=== PATIENT | female | born 1990 | race Caucasian/White ===

== ENCOUNTER 2016-09-18 20:10 | Inpatient (IN) | payer MEDICAID, OTHER ==
[~2016-09-18] VITALS: Ht 170.2 cm; Wt 112.8 kg
[2016-09-18] MEDS: BETAMETHASONE 6 MG/ML, 5ML IM SCH (17:38)
[2016-09-18] MEDS ORDERED: MAGNESIUM SULF. PMX 20GM/500ML 500 ML IV ONE (22:01)
[2016-09-18] MEDS ORDERED: CALCIUM GLUCONATE 4.6 MEQ/10 ML IV PRN (22:30)
[2016-09-18] MEDS ORDERED: PLEASE ENTER ALLERGIES MC SCH ×2 (23:00)
[2016-09-18] MEDS: MAGNESIUM SULF. PMX 20GM/500ML 500 ML IV SCH (23:31)
[2016-09-18] MEDS ORDERED: ZOLPIDEM 5MG TABLET ONE (23:38)
[2016-09-18] MEDS: ZOLPIDEM 5MG TABLET PO PRN (23:42)
[2016-09-18] MEDS: AMPICILLIN 2 GM in SODIUM CHLORIDE 0.9% 100 ML IV SCH (23:52)
[2016-09-19 00:26] LABS: HEMOGLOBIN 12.1 g/dL (11.7-16.4)
[2016-09-19 00:37] LABS: ASPARTATE AMINO TRANSFERASE 16 U/L (15-37); BLOOD UREA NITROGEN 6 mg/dL (7-18)
[2016-09-19] MEDS: AMPICILLIN 2 GM in SODIUM CHLORIDE 0.9% 100 ML IV SCH ×3 (06:14→17:00)
[2016-09-19] MEDS ORDERED: MAGNESIUM SULF. PMX 20GM/500ML 500 ML IV ONE ×3 (08:35→22:34)
[2016-09-19] MEDS: MAGNESIUM SULF. PMX 20GM/500ML 500 ML IV SCH ×3 (08:39→23:11)
[2016-09-19] MEDS ORDERED: MAGNESIUM SULF. PMX 20GM/500ML 500 ML IV SCH (10:30)
[2016-09-19] MEDS ORDERED: PLEASE ENTER HEIGHT AND WEIGHT MC SCH (11:00)
[2016-09-19] MEDS: LACTATED RINGERS 1,000 ML IV PRN (11:07)
[2016-09-19 11:22] VITALS: BP 111/60
[2016-09-19] MEDS ORDERED: BETAMETHASONE 6 MG/ML, 5ML IM ONE (16:26)
[2016-09-19] MEDS: BETAMETHASONE 6 MG/ML, 5ML IM SCH (16:28)
[2016-09-19] MEDS ORDERED: CALCIUM CARBONATE 500 MG TAB.CHEW PO PRN (18:30)
[2016-09-19] MEDS ORDERED: ACETAMINOPHEN 325 MG TABLET ONE (20:41)
[2016-09-19] MEDS: ACETAMINOPHEN 325 MG TABLET PO PRN (20:44)
[2016-09-19] MEDS: DOCUSATE 100 MG CAPSULE PO SCH (21:00)
[2016-09-19] MEDS ORDERED: ZOLPIDEM 5MG TABLET ONE (21:41)
[2016-09-19] MEDS: ZOLPIDEM 5MG TABLET PO PRN (21:47)
[2016-09-20] MEDS: AMPICILLIN 2 GM in SODIUM CHLORIDE 0.9% 100 ML IV SCH ×4 (00:12→17:05)
[2016-09-20] MEDS ORDERED: MAGNESIUM SULF. PMX 20GM/500ML 500 ML IV ONE ×3 (06:00→19:58)
[2016-09-20] MEDS: MAGNESIUM SULF. PMX 20GM/500ML 500 ML IV SCH ×3 (06:06→20:01)
[2016-09-20] MEDS ORDERED: PRENATAL VIT/IRON/FA 1 EACH TABLET ONE (09:47)
[2016-09-20] MEDS ORDERED: DOCUSATE 100 MG CAPSULE ONE (09:47)
[2016-09-20] MEDS: DOCUSATE 100 MG CAPSULE PO SCH ×2 (09:52→21:00)
[2016-09-20] MEDS: PRENATAL VIT/IRON/FA 1 EACH TABLET PO SCH (09:52)
[2016-09-20 19:13] VITALS: BP 104/59
[2016-09-20] MEDS: LACTATED RINGERS 1,000 ML IV PRN (23:57)
[2016-09-21 03:10] VITALS: BP 115/51
[2016-09-21] MEDS ORDERED: MAGNESIUM SULF. PMX 20GM/500ML 500 ML IV ONE ×3 (03:32→19:35)
[2016-09-21] MEDS: MAGNESIUM SULF. PMX 20GM/500ML 500 ML IV SCH ×3 (03:53→19:44)
[2016-09-21 08:51] VITALS: BP 101/56
[2016-09-21] MEDS ORDERED: DOCUSATE 100 MG CAPSULE ONE (10:29)
[2016-09-21] MEDS ORDERED: PRENATAL VIT/IRON/FA 1 EACH TABLET ONE (10:29)
[2016-09-21] MEDS: DOCUSATE 100 MG CAPSULE PO SCH (10:37)
[2016-09-21] MEDS: PRENATAL VIT/IRON/FA 1 EACH TABLET PO SCH (10:37)
[2016-09-21] MEDS: LACTATED RINGERS 1,000 ML IV PRN (19:34)
[2016-09-21] MEDS: SENNA/DOCUSATE TABLET PO PRN (19:45)
[2016-09-21 21:50] VITALS: BP 120/68
[2016-09-22] MEDS ORDERED: MAGNESIUM SULF. PMX 20GM/500ML 500 ML IV ONE ×2 (03:22→20:17)
[2016-09-22] MEDS: MAGNESIUM SULF. PMX 20GM/500ML 500 ML IV SCH ×2 (03:49→13:41)
[2016-09-22 08:49] VITALS: BP 129/63
[2016-09-22] MEDS ORDERED: PRENATAL VIT/IRON/FA 1 EACH TABLET ONE (09:09)
[2016-09-22] MEDS: PRENATAL VIT/IRON/FA 1 EACH TABLET PO SCH (09:22)
[2016-09-22] MEDS: DOCUSATE 100 MG CAPSULE PO SCH (09:22)
[2016-09-22] MEDS: SENNA/DOCUSATE TABLET PO PRN (09:22)
[2016-09-22] MEDS: LACTATED RINGERS 1,000 ML IV PRN (13:37)
[2016-09-22] MEDS ORDERED: MAGNESIUM SULFATE PMX 2GM/50ML 50 ML ONE (13:39)
[2016-09-22] MEDS ORDERED: PREN1TAB60 PO (14:59)
[2016-09-22] MEDS ORDERED: TERBUTALINE 1 MG/ML, 1ML SQ ONE (19:00)
[2016-09-22] MEDS ORDERED: MAGNESIUM SULFATE PMX 2GM/50ML 50 ML IV ONE (19:00)
[2016-09-22] MEDS ORDERED: TERBUTALINE 1 MG/ML, 1ML ONE (19:08)
[2016-09-22] MEDS ORDERED: KETOROLAC 30 MG/1 ML IVPush ONE (19:30)
[2016-09-22 19:49] LABS: HEMOGLOBIN 11.1 g/dL (11.7-16.4)
[2016-09-22] MEDS ORDERED: KETOROLAC 30 MG/1 ML ONE (20:41)
[2016-09-22 21:46] VITALS: BP 121/62
[2016-09-23] MEDS ORDERED: METHYLERGONOVINE 0.2 MG/ML IM ONE (01:20)
[2016-09-23] MEDS ORDERED: MAGNESIUM SULF. PMX 20GM/500ML 500 ML IV ONE ×3 (05:03→23:56)
[2016-09-23] MEDS: MAGNESIUM SULF. PMX 20GM/500ML 500 ML IV SCH ×2 (05:18→14:30)
[2016-09-23] MEDS: LACTATED RINGERS 1,000 ML IV PRN ×2 (05:19→21:46)
[2016-09-23 08:08] VITALS: BP 129/59
[2016-09-23] MEDS ORDERED: PRENATAL VIT/IRON/FA 1 EACH TABLET ONE (09:02)
[2016-09-23] MEDS: SENNA/DOCUSATE TABLET PO PRN (09:10)
[2016-09-23] MEDS: DOCUSATE 100 MG CAPSULE PO SCH (09:10)
[2016-09-23] MEDS: PRENATAL VIT/IRON/FA 1 EACH TABLET PO SCH (09:10)
[2016-09-23] MEDS: INDOMETHACIN 25 MG CAPSULE PO SCH (20:12)
[2016-09-24] MEDS: INDOMETHACIN 25 MG CAPSULE PO SCH ×4 (02:07→20:52)
[2016-09-24] MEDS ORDERED: PRENATAL VIT/IRON/FA 1 EACH TABLET ONE (07:34)
[2016-09-24] MEDS: PRENATAL VIT/IRON/FA 1 EACH TABLET PO SCH (08:14)
[2016-09-24] MEDS: SENNA/DOCUSATE TABLET PO PRN (08:14)
[2016-09-24] MEDS: DOCUSATE 100 MG CAPSULE PO SCH ×3 (08:14→21:00)
[2016-09-24 08:15] VITALS: BP 136/64
[2016-09-24] MEDS ORDERED: MAGNESIUM SULF. PMX 20GM/500ML 500 ML IV ONE ×2 (10:29→21:52)
[2016-09-24] MEDS: MAGNESIUM SULF. PMX 20GM/500ML 500 ML IV SCH ×2 (10:37→22:04)
[2016-09-24] MEDS: LACTATED RINGERS 1,000 ML IV PRN (13:39)
[2016-09-25] MEDS: INDOMETHACIN 25 MG CAPSULE PO SCH ×3 (02:35→14:45)
[2016-09-25] MEDS: LACTATED RINGERS 1,000 ML IV PRN ×2 (04:29→17:36)
[2016-09-25] MEDS ORDERED: DOCUSATE 100 MG CAPSULE ONE (07:36)
[2016-09-25] MEDS ORDERED: PRENATAL VIT/IRON/FA 1 EACH TABLET ONE (07:36)
[2016-09-25] MEDS ORDERED: MAGNESIUM SULF. PMX 20GM/500ML 500 ML IV ONE ×2 (07:37→17:34)
[2016-09-25] MEDS: DOCUSATE 100 MG CAPSULE PO SCH ×3 (07:43→21:00)
[2016-09-25] MEDS: PRENATAL VIT/IRON/FA 1 EACH TABLET PO SCH (07:43)
[2016-09-25] MEDS: MAGNESIUM SULF. PMX 20GM/500ML 500 ML IV SCH ×2 (07:45→17:38)
[2016-09-25 07:51] VITALS: BP 135/66
[2016-09-26] MEDS: DOCUSATE 100 MG CAPSULE PO SCH ×3 (09:00→20:06)
[2016-09-26] MEDS ORDERED: PRENATAL VIT/IRON/FA 1 EACH TABLET ONE (09:09)
[2016-09-26] MEDS: PRENATAL VIT/IRON/FA 1 EACH TABLET PO SCH (09:10)
[2016-09-26 20:00] VITALS: BP 115/56
[2016-09-26] MEDS: SODIUM CHLORIDE FLUSH 3ML SYRINGE IVF SCH (20:06)
[2016-09-27] MEDS ORDERED: PRENATAL VIT/IRON/FA 1 EACH TABLET ONE (08:16)
[2016-09-27] MEDS ORDERED: DOCUSATE 100 MG CAPSULE ONE ×2 (08:16→08:26)
[2016-09-27] MEDS: DOCUSATE 100 MG CAPSULE PO SCH (08:20)
[2016-09-27] MEDS: PRENATAL VIT/IRON/FA 1 EACH TABLET PO SCH (08:20)
[2016-09-27] MEDS: SODIUM CHLORIDE FLUSH 3ML SYRINGE IVF SCH (09:00)
[2016-09-27] MEDS ORDERED: ACETAMINOPHEN 325 MG TABLET ONE (16:30)
[2016-09-27] MEDS: ACETAMINOPHEN 325 MG TABLET PO PRN (16:31)
[2016-09-27 19:44] VITALS: BP 115/59
[2016-09-27 20:09] LABS: HEMOGLOBIN 11.1 g/dL (11.7-16.4)
[2016-09-28] MEDS: SODIUM CHLORIDE FLUSH 3ML SYRINGE IVF SCH ×3 (06:47→21:00)
[2016-09-28] MEDS: DOCUSATE 100 MG CAPSULE PO SCH ×2 (09:00→21:00)
[2016-09-28 09:24] VITALS: BP 124/68
[2016-09-28] MEDS ORDERED: PRENATAL VIT/IRON/FA 1 EACH TABLET ONE (11:21)
[2016-09-28] MEDS: PRENATAL VIT/IRON/FA 1 EACH TABLET PO SCH (11:23)
[2016-09-28 21:54] VITALS: BP 116/63
[2016-09-29] MEDS: DOCUSATE 100 MG CAPSULE PO SCH ×3 (09:00→21:00)
[2016-09-29] MEDS: SODIUM CHLORIDE FLUSH 3ML SYRINGE IVF SCH ×2 (09:00→21:00)
[2016-09-29] MEDS ORDERED: PRENATAL VIT/IRON/FA 1 EACH TABLET ONE (09:14)
[2016-09-29] MEDS: PRENATAL VIT/IRON/FA 1 EACH TABLET PO SCH (09:15)
[2016-09-29 19:56] VITALS: BP 120/75
[2016-09-30 05:04] VITALS: BP 117/58
[2016-09-30] MEDS ORDERED: PRENATAL VIT/IRON/FA 1 EACH TABLET ONE (08:42)
[2016-09-30] MEDS: PRENATAL VIT/IRON/FA 1 EACH TABLET PO SCH (08:51)
[2016-09-30] MEDS: DOCUSATE 100 MG CAPSULE PO SCH ×2 (09:00→21:00)
[2016-09-30] MEDS: SODIUM CHLORIDE FLUSH 3ML SYRINGE IVF SCH (09:00)
[2016-09-30] MEDS ORDERED: ACETAMINOPHEN 325 MG TABLET ONE (13:47)
[2016-09-30] MEDS: ACETAMINOPHEN 325 MG TABLET PO PRN (13:49)
[2016-09-30 19:19] VITALS: BP 132/70
[2016-10-01] MEDS: DOCUSATE 100 MG CAPSULE PO SCH ×2 (09:19→20:24)
[2016-10-01] MEDS ORDERED: PRENATAL VIT/IRON/FA 1 EACH TABLET ONE (09:22)
[2016-10-01] MEDS: PRENATAL VIT/IRON/FA 1 EACH TABLET PO SCH (09:24)
[2016-10-01 20:38] VITALS: BP 145/79
[2016-10-02 05:04] VITALS: BP 126/58
[2016-10-02] MEDS: PRENATAL VIT/IRON/FA 1 EACH TABLET PO SCH (09:21)
[2016-10-02] MEDS: DOCUSATE 100 MG CAPSULE PO SCH (09:21)
[2016-10-02 22:42] VITALS: BP 126/71
[2016-10-03] MEDS ORDERED: PRENATAL VIT/IRON/FA 1 EACH TABLET ONE (08:43)
[2016-10-03] MEDS ORDERED: DOCUSATE 100 MG CAPSULE ONE (08:43)
[2016-10-03] MEDS: DOCUSATE 100 MG CAPSULE PO SCH (08:50)
[2016-10-03] MEDS: PRENATAL VIT/IRON/FA 1 EACH TABLET PO SCH (08:50)
[2016-10-03 13:08] VITALS: BP 126/62
[2016-10-03 16:37] VITALS: BP 131/63
[2016-10-03] MEDS ORDERED: NEWBORN KIT ONE (21:18)
[2016-10-04] MEDS ORDERED: PRENATAL VIT/IRON/FA 1 EACH TABLET ONE (08:49)
[2016-10-04] MEDS ORDERED: DOCUSATE 100 MG CAPSULE ONE (08:52)
[2016-10-04] MEDS: DOCUSATE 100 MG CAPSULE PO SCH ×3 (08:53→21:00)
[2016-10-04] MEDS: PRENATAL VIT/IRON/FA 1 EACH TABLET PO SCH (08:53)
[2016-10-04 19:14] VITALS: BP 127/65
[2016-10-05 05:21] VITALS: BP 124/68
[2016-10-05] MEDS ORDERED: DOCUSATE 100 MG CAPSULE ONE (08:44)
[2016-10-05] MEDS ORDERED: PRENATAL VIT/IRON/FA 1 EACH TABLET ONE (08:44)
[2016-10-05] MEDS: PRENATAL VIT/IRON/FA 1 EACH TABLET PO SCH (08:46)
[2016-10-05] MEDS: DOCUSATE 100 MG CAPSULE PO SCH ×2 (08:47→21:00)
[2016-10-05] MEDS ORDERED: ACETAMINOPHEN 325 MG TABLET ONE (09:36)
[2016-10-05] MEDS: ACETAMINOPHEN 325 MG TABLET PO PRN (09:39)
[2016-10-05 20:11] VITALS: BP 130/80
[2016-10-05 20:29] LABS: HEMOGLOBIN 11.8 g/dL (11.7-16.4)
[2016-10-06] MEDS ORDERED: DOCUSATE 100 MG CAPSULE ONE (08:55)
[2016-10-06] MEDS ORDERED: PRENATAL VIT/IRON/FA 1 EACH TABLET ONE (08:55)
[2016-10-06 08:59] VITALS: BP 129/64
[2016-10-06] MEDS: DOCUSATE 100 MG CAPSULE PO SCH ×2 (09:01→21:04)
[2016-10-06] MEDS: PRENATAL VIT/IRON/FA 1 EACH TABLET PO SCH (09:01)
[2016-10-06] MEDS ORDERED: ACETAMINOPHEN 325 MG TABLET ONE (09:35)
[2016-10-06] MEDS: ACETAMINOPHEN 325 MG TABLET PO PRN (09:36)
[2016-10-06 13:01] VITALS: BP 119/64
[2016-10-06 20:49] VITALS: BP 120/70
[2016-10-06] MEDS: NITROFURANTOIN (MACROBID) 100 MG CAPSULE PO SCH (21:04)
[2016-10-07] MEDS ORDERED: PRENATAL VIT/IRON/FA 1 EACH TABLET ONE (09:10)
[2016-10-07 09:15] VITALS: BP 113/58
[2016-10-07] MEDS: PRENATAL VIT/IRON/FA 1 EACH TABLET PO SCH (09:16)
[2016-10-07] MEDS: DOCUSATE 100 MG CAPSULE PO SCH ×2 (09:17→21:00)
[2016-10-07] MEDS: NITROFURANTOIN (MACROBID) 100 MG CAPSULE PO SCH ×2 (09:22→21:15)
[2016-10-07 21:02] VITALS: BP 135/77
[2016-10-08] MEDS ORDERED: PRENATAL VIT/IRON/FA 1 EACH TABLET ONE (08:43)
[2016-10-08] MEDS: DOCUSATE 100 MG CAPSULE PO SCH ×2 (08:45→21:12)
[2016-10-08] MEDS: PRENATAL VIT/IRON/FA 1 EACH TABLET PO SCH (08:45)
[2016-10-08] MEDS: NITROFURANTOIN (MACROBID) 100 MG CAPSULE PO SCH ×2 (08:45→21:12)
[2016-10-08 08:47] VITALS: BP 131/65
[2016-10-08 12:42] VITALS: BP 137/68
[2016-10-08] MEDS ORDERED: DOCUSATE 100 MG CAPSULE ONE (21:09)
[2016-10-08 22:00] VITALS: BP 122/66
[2016-10-09] MEDS: DOCUSATE 100 MG CAPSULE PO SCH ×2 (09:00→09:29)
[2016-10-09] MEDS ORDERED: PRENATAL VIT/IRON/FA 1 EACH TABLET ONE (09:27)
[2016-10-09] MEDS: PRENATAL VIT/IRON/FA 1 EACH TABLET PO SCH (09:29)
[2016-10-09] MEDS: NITROFURANTOIN (MACROBID) 100 MG CAPSULE PO SCH ×2 (09:29→21:00)
[2016-10-09 19:22] VITALS: BP 126/70
[2016-10-09] MEDS: SENNA/DOCUSATE TABLET PO PRN (21:00)
[2016-10-09] MEDS ORDERED: ZOLPIDEM 5MG TABLET ONE (21:37)
[2016-10-09] MEDS: ZOLPIDEM 5MG TABLET PO PRN (21:41)
[2016-10-10] MEDS: DOCUSATE 100 MG CAPSULE PO SCH ×2 (09:00→21:01)
[2016-10-10] MEDS ORDERED: PRENATAL VIT/IRON/FA 1 EACH TABLET ONE (09:03)
[2016-10-10] MEDS: NITROFURANTOIN (MACROBID) 100 MG CAPSULE PO SCH ×2 (09:10→21:55)
[2016-10-10] MEDS: PRENATAL VIT/IRON/FA 1 EACH TABLET PO SCH (09:10)
[2016-10-10 09:12] VITALS: BP 127/71
[2016-10-10] MEDS ORDERED: DOCUSATE 100 MG CAPSULE ONE (20:47)
[2016-10-10 22:15] VITALS: BP 122/61
[2016-10-11 08:43] VITALS: BP 125/80
[2016-10-11] MEDS ORDERED: PRENATAL VIT/IRON/FA 1 EACH TABLET ONE (09:48)
[2016-10-11] MEDS: NITROFURANTOIN (MACROBID) 100 MG CAPSULE PO SCH ×2 (09:50→21:11)
[2016-10-11] MEDS: PRENATAL VIT/IRON/FA 1 EACH TABLET PO SCH (09:50)
[2016-10-11] MEDS: DOCUSATE 100 MG CAPSULE PO SCH (21:12)
[2016-10-11 23:07] VITALS: BP 123/69
[2016-10-12] MEDS: NITROFURANTOIN (MACROBID) 100 MG CAPSULE PO SCH (05:16)
[2016-10-12 06:47] VITALS: BP 112/59
[2016-10-12 09:00] VITALS: BP 134/67
[2016-10-12] MEDS ORDERED: PRENATAL VIT/IRON/FA 1 EACH TABLET ONE (11:35)
[2016-10-12] MEDS: DOCUSATE 100 MG CAPSULE PO SCH (11:38)
[2016-10-12] MEDS: PRENATAL VIT/IRON/FA 1 EACH TABLET PO SCH (11:38)
[2016-10-12 19:30] VITALS: BP 142/73
== END 2016-10-12 19:30 | disposition home or self-care (01) | DRG 778 ==
LOC: LDIP 21:42
PROVIDERS: ADMIT Obstetrics & Gynecology Maternal & Fetal Medicine; ATTEND Obstetrics & Gynecology Maternal & Fetal Medicine
PROC: 0T9B70Z Drainage of Bladder with Drainage Device, Via Natural or Artificial Opening (ICD-10-PCS; principal; 2016-09-18)
DX: O60.03 Preterm labor without delivery, third trimester (principal); O30.033 Twin pregnancy, monochorionic/diamniotic, third trimester; O32.1XX1 Maternal care for breech presentation, fetus 1; Z3A.27 27 weeks gestation of pregnancy
CPT/HCPCS: 36415; 76805; 76819; 80053; 81001; 81003; 83735; 85025; 86850; 86900; 87081; 87086; 89060; J0290; J0702; J1885; J3105; J3475; J7120; Q0114